=== PATIENT | male | born 1975 | race Caucasian/White ===

== ENCOUNTER 2022-07-29 16:06 | Inpatient (IN) | payer OTHER ==
[~2022-07-29] VITALS: Ht 177.8 cm; Wt 127.8 kg
[2022-08-12] VITALS (14 sets, daily range): BP systolic 133–175; BP diastolic 66–99; PULSE 75–104; TEMP 97.9–98.5
[2022-08-12] MEDS ORDERED: CARDIZEM CD 12120 MG PO (06:39)
[2022-08-12] MEDS ORDERED: CYMBALTA 30MG30 MG PO (06:40)
[2022-08-12] MEDS ORDERED: PEPCID40 MG PO (06:41)
[2022-08-12] MEDS ORDERED: ROBAXIN 75750 MG/TAB PO (06:42)
[2022-08-12] MEDS ORDERED: PRILOSEC 20MG20 MG PO (06:42)
[2022-08-12] MEDS ORDERED: PRAVACHOL 20MG20 MG PO (06:43)
[2022-08-12] MEDS ORDERED: IMITREX 25MG TA25 MG PO (06:44)
[2022-08-12] MEDS ORDERED: DESYREL 50MG50 MG PO (06:44)
[2022-08-12] MEDS ORDERED: PRINIVIL2.5 MG PO (06:45)
[2022-08-12] MEDS ORDERED: ASPIRIN E.C. 8181 MG PO (06:45)
[2022-08-12] MEDS ORDERED: COZAAR 25MG25 MG/TAB PO (06:46)
[2022-08-12] MEDS ORDERED: WELLBUTRIN XL150 MG PO ×2 (06:49→06:50)
--- NOTE | 2022-08-12 06:50 | NUR ---
PATIENT DID NOT BRING UPDATED MEDICATION LIST AND IS POOR HISTORIAN WITH DOSAGES AND FREQUENCY. MEDICATION LIST DONE FROM ANESTHESIA RECORD AND H&P.
--- NOTE | 2022-08-12 11:00 | NUR ---
Pt arrived to the floor from [facility]. Pt is drowsy, but does wake easily when spoken to. Lap sites CDI with bandaids. TONY to bulb suction. Pt on bipap upon arrival. Shortly after, pt became short and wanted bipap off. Oxymask put on at 5L. O2 remained in mid 90s. Gave pt mouth swab. Oriented pt to his room. Pt had complaints of pain, no order for IV pain medication. Dr Bojorquez was notified, new orders entered.
--- NOTE | 2022-08-12 11:40 | NUR ---
Pt O2 has remained mid to upper 90s. Decreased O2 to 4L per oxymask at this time
--- NOTE | 2022-08-12 11:53 | NUR ---
Pt having some complaints of feeling nauseated and a headache. Assisted him to the restroom, voided without difficulty. Pt was steady getting in to the bathroom, no complaints of being lightheaded or dizzy. Pt sitting on the side of the bed. Pt aware of the barium swallow to be done around noon.
[2022-08-12] MEDS ORDERED: MINIPRESS2 MG (12:38)
[2022-08-12] MEDS ORDERED: GLUCOPHAGE500 MG/TAB PO (12:39)
--- NOTE | 2022-08-12 13:09 | NUR ---
PT BLOOD PRESSURE ELEVATED SYSTOLIC 160'-170'2. THIS NURSE CALLED RADIOLOGY AND WAS TOLD THEY COULD NOT DO THE SWALLOW STUDY UNTIL AFTER 1400. DR. SHEPPARD NOTIFIED OF PT STATUS AT 1302. DR. SHEPPARD STATED TO ADMINISTER PT'S PO BLOOD PRESSURE MEDICATIONS WITH SMALL SIP OF WATER, PT REMAINS NPO OTHERWISE.
--- NOTE | 2022-08-12 15:57 | NUR ---
RADIOLOGY TO THE ROOM TO TAKE PT DOWN TO DO SWALLOW STUDY.
--- NOTE | 2022-08-12 16:14 | NUR ---
DR. SHEPPARD NOTIFIED TO PT'S INCREASED BLOOD PRESSURE. DR. SHEPPARD REQUESTED TO CONSULT HOSPITALIST FOR BLOOD PRESSURE MANAGEMENT. HOSPITALIST NOTIFED AND WILL BE IN THE VISIT WITH PT.
--- NOTE | 2022-08-12 17:23 | NUR ---
Pt sitting up on the bench in room. Pt is somewhat short with conversation. PRN pain medication given at this time and clear liquid tray ordered. Pt said he is grumpy because he has not had anything to eat all day. Informed him to take the liquids slow when he does get them. Pt did state that he does not want any dilaudid again as it made him nauseated and have a headache. Pt reports that that feeling has improved some. PRN given for elevated BP as well. Will continue to monitor
--- NOTE | 2022-08-12 22:03 | NUR ---
Patient A/Ox4, head to toe assessment, see shift assessment, rates his pain at 6/10, [place] given, lap sites CDI, with IV to right hand infusing well, denies nausea, denies further needs, call light and personal items within reach, will continue to monitor.
[2022-08-13] VITALS (8 sets, daily range): BP systolic 115–164; BP diastolic 69–93; PULSE 63–96; TEMP 98–98.9
--- NOTE | 2022-08-13 04:35 | NUR ---
Patient verbalized pain is better, will continue to monitor.
--- NOTE | 2022-08-13 07:44 | NUR ---
pt awake and sitting on bench in room. meds given and assessment complete. pt reports pain a 4/10 and does not want pain medication at this time. he reports the pain is a dull ache just below the sternum. x4 lap sites are cdi w bandaids. TONY drain in place w a small amount of serosanguineous drainage. pt wanting to have breakfast this morning but isnt sure what, gave pt apple juice and jello to try. encouraged pt to ambulate the halls today if can tolerate. INT to right hand. no needs at this time. call light in reach.
--- NOTE | 2022-08-13 10:01 | NUR ---
Ceramics Machine Operator met with Patient at bedside to conduct Care Managment Assessment and discuss discharge planning. Patient lives in [place], [place] with his and children. Olivia is established with PCP through the [facility] and recieves Rx from [facility] in [place]. Patient denies the use of DME prior to admission and endorses the [facility]. Patient reports to not have advanced directives at this time and declines AD paperwork. Discharge Plan: Home
--- NOTE | 2022-08-13 10:21 | NUR ---
[facility] contacted Patient's , Deborah to initiate familial contact. Deborah reports that she will be on site today and inquired about CPAP use overnight. SW referred Deborah to Nursing staff. Deborah reports no further concerns at this time.
[2022-08-13 10:53] LABS: BASO % 0.2 % (0.0-2.0); EOS % 0.2 % (0.0-4.0); GRAN # 14.4 K/mm3 (1.4-6.5); GRAN % 77.5 % (42.2-75.2); HEMATOCRIT 46.6 % (42.0-52.0); HEMOGLOBIN 16.5 g/dl (13.5-18.0); LYMPH # 2.9 K/mm3 (1.2-3.4); LYMPH % 15.3 % (20.0-51.0); MEAN CELL VOLUME 92 fl (80.0-100.0); MEAN CORPUSCULAR HEMOGLOBIN 32 pg (27-31); MEAN CORPUSCULAR HGB CONC 35 g/dl (33.0-37.0); MEAN PLATELET VOLUME 8.7 fl (7.4-10.4); MONO # 1.2 K/mm3 (0.1-0.6); MONO % 6.3 % (1.7-9.3); PLATELET COUNT 420 K/mm3 (130-400); RED BLOOD COUNT 5.09 M/mm3 (4.20-5.60); REDCELL DISTRIBUTION WIDTH-CV 12.7 % (11.5-14.5)
[2022-08-13 11:13] LABS: ALANINE AMINOTRANSFERASE 99 U/L (0-55); ALBUMIN 4.5 gm/dL (3.5-5.0); ALKALINE PHOSPHATASE 74 U/L (40-150); ANION GAP 13 mmol/L (7-16); AST,SGOT 33 U/L (5-34); BILIRUBIN,TOTAL 0.5 mg/dL (0.2-1.2); BLOOD UREA NITROGEN 13 mg/dL (9-21); CARBON DIOXIDE 22 mmol/L (22-29); CHLORIDE 105 mmol/L (98-107); CREATININE, serum 1.16 mg/dL (0.72-1.25); GLUCOSE 169 mg/dL (70-99); LIPASE 36 U/L (8-78); POTASSIUM 4.1 mmol/L (3.5-4.5); SODIUM 140 mmol/L (136-145); TOTAL PROTEIN 8.1 gm/dL (6.2-8.1)
[2022-08-13 11:20] LABS: TROPONIN-I < 0.010 ng/mL (0.00-0.033)
--- NOTE | 2022-08-13 19:42 | NUR ---
Patient assessed at this time, with INT to right hand, restarted his IV fluids d/t patient verbalized he hasn't been drinking fluids a lot today because of nausea, IV zofran was just given from dayshift nurse and he's willing to wait for the next dose, dressing to abdomen CDI, TONY drain CDI draining sanguinous fluid, will continue to monitor, call light and personal items within reach.
--- NOTE | 2022-08-13 23:58 | NUR ---
Called Dr. Elizabeth lee informed him that total drainage since this nurse came on was 140ml total and it's sanguinous. Yovana, the PA was aware of this as well. No new orders received at this time.
[2022-08-14] VITALS (10 sets, daily range): BP systolic 100–133; BP diastolic 56–69; PULSE 79–95; TEMP 97.8–98.4
[2022-08-14 07:31] LABS: BASO % 0.1 % (0.0-2.0); EOS # 0.1 K/mm3 (0.0-0.7); EOS % 0.4 % (0.0-4.0); GRAN # 11.4 K/mm3 (1.4-6.5); GRAN % 72.3 % (42.2-75.2); HEMATOCRIT 37.9 % (42.0-52.0); LYMPH # 2.9 K/mm3 (1.2-3.4); LYMPH % 18.1 % (20.0-51.0); MEAN CELL VOLUME 94 fl (80.0-100.0); MEAN CORPUSCULAR HEMOGLOBIN 32 pg (27-31); MEAN CORPUSCULAR HGB CONC 34 g/dl (33.0-37.0); MEAN PLATELET VOLUME 9.5 fl (7.4-10.4); MONO # 1.4 K/mm3 (0.1-0.6); MONO % 8.6 % (1.7-9.3); PLATELET COUNT 370 K/mm3 (130-400); RED BLOOD COUNT 4.04 M/mm3 (4.20-5.60)
[2022-08-14 07:49] LABS: HEMOGLOBIN 12.8 g/dl (13.5-18.0)
[2022-08-14 07:53] LABS: ALBUMIN 3.8 gm/dL (3.5-5.0); BILIRUBIN,TOTAL 0.6 mg/dL (0.2-1.2); CALCIUM 8.8 mg/dL (8.4-10.2); CREATININE, serum 1.54 mg/dL (0.72-1.25); POTASSIUM 3.9 mmol/L (3.5-4.5); TOTAL PROTEIN 6.7 gm/dL (6.2-8.1)
--- NOTE | 2022-08-14 08:30 | NUR ---
Pt. sitting up in bed. Pt. is a&OX3, assessment complete. IV to rt. forearm, IV fluids infusing per orders. Pt. reports pain at a 3 on pain scale. TONY drain dumped, see I&0, drainage is sanguinous. Pt. denies further needs, call light within reach.
--- NOTE | 2022-08-14 09:58 | NUR ---
Initial visit; Patient declines spiritual care.
[2022-08-14 17:16] LABS: HEMOGLOBIN 12.2 g/dl (13.5-18.0)
[2022-08-14 17:17] LABS: HEMATOCRIT 35.2 % (42.0-52.0)
--- NOTE | 2022-08-14 22:14 | NUR ---
Patient doing better, rates his pain at 5/10, [place] given, with IV infusing well on right hand, NS running at 100c/hr, denies further needs, call light and personal items within reach, will continue to monitor.
[2022-08-15 03:53] VITALS: BP 132/66; PULSE 77; TEMP 98.1
[2022-08-15 07:03] LABS: BASO % 0.2 % (0.0-2.0); EOS # 0.3 K/mm3 (0.0-0.7); EOS % 2.4 % (0.0-4.0); GRAN # 6.9 K/mm3 (1.4-6.5); GRAN % 64.6 % (42.2-75.2); HEMOGLOBIN 10.6 g/dl (13.5-18.0); LYMPH # 2.3 K/mm3 (1.2-3.4); LYMPH % 21.8 % (20.0-51.0); MEAN CELL VOLUME 95 fl (80.0-100.0); MEAN CORPUSCULAR HEMOGLOBIN 32 pg (27-31); MEAN CORPUSCULAR HGB CONC 34 g/dl (33.0-37.0); MEAN PLATELET VOLUME 9.4 fl (7.4-10.4); MONO # 1.2 K/mm3 (0.1-0.6); MONO % 10.7 % (1.7-9.3); PLATELET COUNT 317 K/mm3 (130-400); RED BLOOD COUNT 3.32 M/mm3 (4.20-5.60); REDCELL DISTRIBUTION WIDTH-CV 12.8 % (11.5-14.5)
[2022-08-15 07:08] LABS: HEMATOCRIT 31.6 % (42.0-52.0)
[2022-08-15 07:20] LABS: CALCIUM 8.5 mg/dL (8.4-10.2); CREATININE, serum 0.92 mg/dL (0.72-1.25); POTASSIUM 3.8 mmol/L (3.5-4.5)
[2022-08-15 08:00] VITALS: BP 115/69; PULSE 86; TEMP 98.9
--- NOTE | 2022-08-15 09:18 | NUR ---
PT APPEARS TO BE RESTING IN BED ON PHONE. ASSESSMENT DONE, SEE INTERVENTION. PT REPORTS ABDOMINAL PAIN RATING IT AN 8, PRN NORCO GIVEN. NS RUNNING AT 100 MLS PER ORDER, PT TOLERATING WELL. PT REFUSED BREAKFAST AND HAS NO OTHER COMPLAINTS AT THIS TIME.
[2022-08-15] MEDS ORDERED: NORCO 325 MG-51 TAB PO (09:24)
[2022-08-15] MEDS ORDERED: ZOFRAN 4MG T4 MG/TAB PO (09:24)
[2022-08-15 10:28] VITALS: BP_SYST 115
--- NOTE | 2022-08-15 11:25 | NUR ---
DISCHARGE ORDERS RECIEVED. TELEMETRY REMOVED AND RETURNED TO ICU. IV FLUID STOPPED AND IV SITE DISCONTINUED. CATHETER TIP INTACT AND SITE COVERED WITH GAUZE AND SECURED WITH TAPE.
== END 2022-08-15 11:45 | disposition home or self-care (01) | DRG 620 ==
LOC: INPTSU 08-12 05:48 → SURG 08-12 07:30
PROVIDERS: Physician Assistant; ADMIT Surgery
PROC: 5A09457 Assistance with Respiratory Ventilation, 24-96 Consecutive Hours, Continuous Positive Airway Pressure (ICD-10-PCS; 2022-08-12)
PROC: 0DB64Z3 Excision of Stomach, Percutaneous Endoscopic Approach, Vertical (ICD-10-PCS; principal; 2022-08-12 07:30)
DX: E66.01 Morbid (severe) obesity due to excess calories (principal); N17.9 Acute kidney failure, unspecified; I97.3 Postprocedural hypertension; K21.9 Gastro-esophageal reflux disease without esophagitis; K29.70 Gastritis, unspecified, without bleeding; D72.829 Elevated white blood cell count, unspecified; F41.9 Anxiety disorder, unspecified; R09.02 Hypoxemia; E11.9 Type 2 diabetes mellitus without complications; F32.A Depression, unspecified; E78.00 Pure hypercholesterolemia, unspecified; Z79.82 Long term (current) use of aspirin; Z88.6 Allergy status to analgesic agent; Z87.891 Personal history of nicotine dependence; Z23 Encounter for immunization; Z68.41 Body mass index [BMI] 40.0-44.9, adult
CPT/HCPCS: J0690; J1100; J1170; J1885; J2405; J2704; J3010; J7030; J7120